=== PATIENT | male | born 1955 | race Caucasian/White ===

== ENCOUNTER 2018-09-11 11:39 | Emergency (ER) | payer SELFPAY ==
[2018-09-11 12:02] VITALS: BP 132/80
--- NOTE | 2018-09-11 12:03 | ED Physician Documentation ---
Low Back Pain - HISTORIAN Historian: patient - HPI Stated Complaint: Back pain Chief Complaint: Low Back Pain/ Injury Additional Information: Patient presents to ED with a 24 hour history of lower extremity weakness and low back pain. Patients he is unable to bear weight on his right leg because it causes low back pain. He admit to tingling in both lower extremities R>L. Patient has a history of back surgery in 2008 or 2009, stating, "I had L7 laproscopy". 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 He reports having to use a walker to ambulate. Patient denies loss of bowel or bladder control History: back pain Onset: hours (24) Duration: continues in ED Recent Injury: No Where: work Other Injuries: back Severity: moderate Quality: burning, similar- prior back pain Associated Symptoms: weakness. denies: fever, incontinence, problems urinating Worsened By:: supine Relieved By: other (seated position) Further Comments: no - ROS CONST: weakness CVS/RESP: denies: chest pain, shortness of breath EYES/ENT: denies: problems with vision MS/SKIN/LYMPH: ankle swelling. denies: calf pain, neck pain, leg swelling, leg pain GI/: denies: abdominal pain - PAST HX Past History: back pain Other History: hypertension Surgeries/Procedures: back surgery Allergies/Adverse Reactions: Allergies Allergy/AdvReac Type Severity Reaction Status Date / Time Penicillins Allergy Intermediate Hives Verified 09/11/18 12:01 Home Medications: Ambulatory Orders Medication Instructions Recorded predniSONE [Deltasone] 20 mg PO DIRECTED #20 tablet 09/11/18 - SOCIAL HX Smoking History: cigarettes, greater than 1 pack/day Alcohol Use: none Drug Use: none - FAMILY HX Family History: none - VITAL SIGNS Vital Signs: Vital Signs Temp Pulse Resp BP Pulse Ox 90 15 132/80 94 09/11/18 11:45 09/11/18 11:45 09/11/18 11:45 09/11/18 11:45 - REVIEWED ASSESSMENTS Nursing Assessment Reviewed: Yes Vitals Reviewed: Yes ED Results Lab/Radiology - Radiology Radiology Impressions: Report Submission Date: Sep 11, 2018 1:18:35 PM CDT Patient Study Name: ALICIA HUNG Date: Sep 11, 2018 12:19:36 PM CDT Modality Type: CT\\SR Gender: M Description: CT L-SPINE W/O CONTRAS : 53 Institution: [facility] Physician: RADHA WAHL CT lumbar spine without contrast History: Low back pain for 3 days. No known injury. Technique: Helically acquired images were obtained through the lumbar spine. Sagittal and coronal reconstructions were performed. Findings: There is moderate disc space narrowing with vacuum disc phenomenon at and anterior spondylosis at L4/5. Otherwise, vertebral body height and intervertebral disc space height is maintained. There is no scoliotic curvature. SI joints are patent. T12/L1, L1/2, L2/3 and L3/4: Unremarkable L4/5: This is the level of abnormality. At this level, there is broad-based disc bulging as well as a midline to left paracentral disc extrusion which impresses upon the left paracentral ventral thecal sac and completely effaces the budding left L5 nerve root at the lateral recess. The bilateral L4 roots exit the foramen without compromise. There is moderate left and mild right facet arthropathy. L5/S1: There is mild facet arthropathy. There is no broad-based or focal disc pathology, central stenosis, lateral recess narrowing or foraminal narrowing. Impression: The only level of abnormality is L4/5. At this level, there is broad-based disc bulging as well as a left paracentral disc extrusion which generates mass- effect upon the left paracentral ventral thecal sac and completely effaces the budding left L5 nerve root. Not mentioned in the body of the report, noted within the retroperitoneum, there is aortoiliac atherosclerosis. There is additionally a left adrenal nodule measuring 1.8 x 1.6 cm in greatest dimension with Hounsfield units of 5, consistent with an adrenal adenoma. Electronically signed on Sep 11, 2018 1:18:35 PM CDT by: Marva Shepard - Orders Orders: ED Orders Category Date Time Status CT L-SPINE W/O CONTRAST Stat Exams 09/11/18 Taken Ketorolac Tromethamine [Toradol] Med 09/11/18 12:22 Discontinued 60 mg IM NOW ONE methylPREDNISolone SOD SUCC [SOLU-Medrol] Med 09/11/18 12:22 Discontinued 125 mg IM NOW ONE Low Back Pain/Injury - Physical Exam General Appearance: no acute distress, alert EENT: STEVE Neck: non-tender, painless ROM. No: vertebral point-tendernes Resp/CVS: chest non-tender, breath sounds nml, heart sounds nml Abdomen: non-tender Back: muscle spasm Straight Leg Raising: Negative Left, Positive Right Neuro/Psych: oriented x3, reflexes nml, difficulty walking, other (patient is able to stand, from a seated position using left leg only, while holding (a flexed) right leg off the floor) Skin: warm/dry Extremities: non-tender Discharge Clincal Impression: Bulging lumbar disc Prescriptions: predniSONE [Deltasone] 20 mg PO DIRECTED #20 tablet Referrals: Mamadou Guillen MD [Primary Care Provider] - 2 Days Additional Instructions: 1. Follow up with Neurosurgeon as soon as possible for further evaluation 2. Follow up with PCP within 1 week 3. Return to ER for new or worsening symptoms. Condition: Stable Disposition: 01 HOME, SELF-CARE Decision to Admit: NO Date of Decison to Admit: 09/11/18 Decision Time: 13:29
[2018-09-11] MEDS ORDERED: methylPREDNISolone SOD SUCC 125 MG/2 ML VIAL IM ONE (12:22)
[2018-09-11] MEDS ORDERED: KETOROLAC TROMETHAMINE 60 MG/2 ML VIAL IM ONE (12:22)
--- NOTE | 2018-09-11 13:26 | Diagnostic Imaging Report ---
RADHA WAHL [facility] [id number] [facility] [address] [place], [place]. [address] Report Submission Date: Sep 11, 2018 1:18:35 PM CDT Patient Study Name: ALICIA HUNG Date: Sep 11, 2018 12:19:36 PM CDT Modality Type: CT\SR Gender: M Description: CT L-SPINE W/O CONTRAS : 53 Institution: [facility] Physician: RADHA WAHL CT lumbar spine without contrast History: Low back pain for 3 days. No known injury. Technique: Helically acquired images were obtained through the lumbar spine. Sagittal and coronal reconstructions were performed. Findings: There is moderate disc space narrowing with vacuum disc phenomenon at and anterior spondylosis at L4/5. Otherwise, vertebral body height and intervertebral disc space height is maintained. There is no scoliotic curvature. SI joints are patent. T12/L1, L1/2, L2/3 and L3/4: Unremarkable L4/5: This is the level of abnormality. At this level, there is broad-based disc bulging as well as a midline to left paracentral disc extrusion which impresses upon the left paracentral ventral thecal sac and completely effaces the budding left L5 nerve root at the lateral recess. The bilateral L4 roots exit the foramen without compromise. There is moderate left and mild right facet arthropathy. L5/S1: There is mild facet arthropathy. There is no broad-based or focal disc pathology, central stenosis, lateral recess narrowing or foraminal narrowing. Impression: The only level of abnormality is L4/5. At this level, there is broad-based disc bulging as well as a left paracentral disc extrusion which generates mass-effect upon the left paracentral ventral thecal sac and completely effaces the budding left L5 nerve root. Not mentioned in the body of the report, noted within the retroperitoneum, there is aortoiliac atherosclerosis. There is additionally a left adrenal nodule measuring 1.8 x 1.6 cm in greatest dimension with Hounsfield units of 5, consistent with an adrenal adenoma. Electronically signed on Sep 11, 2018 1:18:35 PM CDT by: Marva PFEIFFER
== END 2018-09-11 13:41 | disposition home or self-care (01) ==
LOC: ED 11:39
DX: M51.26 Other intervertebral disc displacement, lumbar region (principal)
CPT/HCPCS: 72131; 96372; 99283; 99284; J1885; J2930

== ENCOUNTER 2018-11-30 10:22 | Emergency (ER) | payer SELFPAY ==
[2018-11-30] MEDS ORDERED: CLINDAMYCIN PHOSPHATE 900 MG/6 ML VIAL ONE (11:15)
[2018-11-30] MEDS ORDERED: 0.9 % SODIUM CHLORIDE 100 ML IV.SOLN IV ONE (11:15)
[2018-11-30] MEDS ORDERED: NORMAL SALINE 1,000 ML IV.SOLN IV ONE (11:15)
[2018-12-06 07:11] LABS: BASOPHILS % 0.8 % (0.0-1.5); NEUTROPHILS # 4.4 # k/uL (1.4-7.7)
[2018-12-06 07:12] LABS: eGFR (Non-African) 57
--- NOTE | 2018-12-23 13:53 | Diagnostic Imaging Report ---
DOUGLAS TOMLINSON [facility] [address] [address] Report Submission Date: Nov 30, 2018 11:26:02 AM CDT Patient Study Name: ALICIA HUNG Date: Nov 30, 2018 10:55:49 AM CDT Modality Type: DX Gender: M Description: FOOT 3 VIEWS OR MORE : 53 Institution: [facility] Physician: DOUGLAS TOMLINSON Right foot 3 views Clinical history: Pain and swelling No visible fracture, dislocation or bone destruction. No visible radiopaque foreign bodies. No periosteal reaction. Impression: Normal right foot. Electronically signed on Nov 30, 2018 11:26:02 AM CDT by: Mamadou PFEIFFER
== END 2018-11-30 12:43 ==
LOC: ED 10:22
DX: L03.031 Cellulitis of right toe (principal)
CPT/HCPCS: 73630; 80053; 85025; 87040; 99283; 99284; J7030; S1016